=== PATIENT | female | born 1990 | race African-American/Black ===

== ENCOUNTER 2018-12-07 17:43 | Emergency (ER) | payer SELFPAY ==
[~2018-12-07] VITALS: Ht 162.6 cm; Wt 59.0 kg
[2018-12-07 19:47] VITALS: BP 109/70
== END 2018-12-07 18:14 | disposition left against medical advice (07) ==
LOC: ER 17:43
DX: Z53.21 Procedure and treatment not carried out due to patient leaving prior to being seen by health care provider (principal)

== ENCOUNTER 2023-08-21 12:33 | Emergency (ER) | payer OTHER ==
[~2023-08-21] VITALS: Ht 165.1 cm; Wt 55.0 kg
[2023-08-21 12:56] VITALS: BP 103/65; PULSE 74; RESP 12; TEMP 98.6; O2SAT 99
[2023-08-21] MEDS ORDERED: ACET-2084 MT (14:05)
== END 2023-08-21 14:39 | disposition home or self-care (01) ==
LOC: ER 12:33
DX: B34.9 Viral infection, unspecified (principal)
CPT/HCPCS: 99282

== ENCOUNTER 2024-01-18 18:54 | Emergency (ER) | payer MEDICAID, OTHER ==
[~2024-01-18] VITALS: Ht 162.6 cm; Wt 59.0 kg
[~2024-01-18 18:54] MED LIST: ACET-2084 MT
[2024-01-18 19:06] VITALS: BP 105/68; PULSE 75; RESP 16; TEMP 98.3; O2SAT 100
[2024-01-18 20:55] LABS: BASOPHILS % 0.4 % (0.0-2.0); CARBON DIOXIDE 28 mEq/L (21-32); CHLORIDE 110 mEq/L (98-107); EOSINOPHILS % 2.4 % (0.0-5.0); HEMATOCRIT. 36.9 % (36.0-48.0); HEMOGLOBIN. 12.3 g/dL (12.0-16.0); LYMPHOCYTES % 31.2 % (20.0-50.0); MEAN CORPUSCULAR HGB CONC 33.3 g/dL (31.0-37.0); MEAN CORPUSCULAR VOLUME 90.1 fL (81.0-99.0); MEAN PLATELET VOLUME 8.2 fl (7.4-10.4); MONOCYTES % 10.4 % (2.0-8.0); NEUTROPHILS % 55.6 % (40.0-76.0); PLATELET 257 x1000/uL (130-400); POTASSIUM 4.7 mEq/L (3.5-5.1); RED BLOOD CELL COUNT 4.09 mill/uL (4.2-5.4); RED CELL DISTRIBUTION WIDTH 13.2 % (11.6-14.6); SODIUM 141 mEq/L (136-145); WHITE BLOOD COUNT 8.1 x1000/uL (4.5-11.0)
[2024-01-18 20:56] LABS: CALCIUM 8.9 mg/dL (8.7-10.4)
[2024-01-18 20:58] LABS: HCG SCREEN NEGATIVE
[2024-01-18 21:00] LABS: CREATININE 0.6 mg/dL (0.6-1.0); GLUCOSE 89 mg/dL (70-105)
[2024-01-18 21:01] LABS: UREA NITROGEN BLOOD 8 mg/dL (9-23)
[2024-01-18 21:02] LABS: ALANINE AMINOTRANSFERASE < 7 IU/L (10-49); ALBUMIN 4.2 g/dL (3.2-4.8); ASPARTATE AMINOTRANSFERASE 15 IU/L (<34)
[2024-01-18 21:03] LABS: BILIRUBIN DIRECT < 0.1 mg/dL (<=3.0); BILIRUBIN TOTAL 0.2 mg/dL (0.1-1.0); PROTEIN TOTAL 7.1 g/dL (6.0-8.3)
== END 2024-01-18 22:17 | disposition left against medical advice (07) ==
LOC: ER 18:54
DX: R10.30 Lower abdominal pain, unspecified (principal); R11.2 Nausea with vomiting, unspecified
CPT/HCPCS: 36415; 80048; 80076; 84703; 85025; 99283

== ENCOUNTER 2024-07-08 10:51 | Emergency (ER) | payer MEDICAID ==
[~2024-07-08] VITALS: Ht 162.6 cm; Wt 58.0 kg
[2024-07-08 11:06] VITALS: O2SAT 99
[2024-07-08 11:11] VITALS: TEMP 98.8; O2SAT 100
[2024-07-08 12:23] VITALS: BP 120/72; PULSE 75; RESP 18
[2024-07-08] MEDS: IBUPROFEN 600MG TABLET PO ONE (12:23)
[2024-07-08] MEDS ORDERED: IBUP-2029 MT (12:26)
== END 2024-07-08 12:50 | disposition home or self-care (01) ==
LOC: ER 10:51
DX: M79.642 Pain in left hand (principal)
CPT/HCPCS: 73130; 99283

== ENCOUNTER 2024-07-19 09:26 | Emergency (ER) | payer MEDICAID, OTHER ==
[~2024-07-19] VITALS: Ht 162.6 cm; Wt 58.5 kg
[~2024-07-19 09:26] MED LIST changes: +IBUP-2029 MT
[2024-07-19 09:29] VITALS: PULSE 98; O2SAT 99
[2024-07-19 09:33] VITALS: BP 106/76; RESP 16; TEMP 98; O2SAT 98
== END 2024-07-19 11:56 | disposition home or self-care (01) ==
LOC: ER 09:26
DX: M65.312 Trigger thumb, left thumb (principal); Z98.890 Other specified postprocedural states
CPT/HCPCS: 29130; 99281; 99283

== ENCOUNTER 2024-09-18 10:11 | Emergency (ER) | payer MEDICAID, OTHER ==
[~2024-09-18] VITALS: Ht 162.6 cm; Wt 59.0 kg
[2024-09-18 10:19] VITALS: O2SAT 100
[2024-09-18 10:47] VITALS: BP 100/56; PULSE 96; RESP 16; TEMP 98.2; O2SAT 99
[2024-09-18 11:21] LABS: HEMATOCRIT 35.8 % (36.0-48.0); HEMOGLOBIN 11.9 g/dL (12.0-16.0); MEAN CORPUSCULAR HEMOGLOBIN 29.7 pg (28.0-32.0); MEAN CORPUSCULAR HGB CONC 33.2 g/dL (31.0-37.0); MEAN CORPUSCULAR VOLUME 89.3 fL (81.0-99.0); PLATELET 238 x1000/uL (130-400); RED BLOOD CELL COUNT 4.01 mill/uL (4.2-5.4); RED CELL DISTRIBUTION WIDTH 13.8 % (11.6-14.6); WHITE BLOOD COUNT 10.1 x1000/uL (4.5-11.0)
[2024-09-18 11:25] LABS: CHLORIDE 107 mEq/L (98-107); POTASSIUM 4.1 mEq/L (3.5-5.1); SODIUM 139 mEq/L (136-145)
[2024-09-18 11:26] LABS: CARBON DIOXIDE 28 mEq/L (21-32)
[2024-09-18 11:27] LABS: CALCIUM 9.2 mg/dL (8.7-10.4); HCG SCREEN NEGATIVE
[2024-09-18 11:31] LABS: CREATININE 0.7 mg/dL (0.6-1.0); GLUCOSE 80 mg/dL (70-105); UREA NITROGEN BLOOD 11 mg/dL (9-23)
[2024-09-18 11:39] LABS: TROPONIN I HIGH SENSITIVITY < 4 ng/L (3.0-34)
== END 2024-09-18 12:43 | disposition home or self-care (01) ==
LOC: ER 10:11
DX: R07.9 Chest pain, unspecified (principal); Z98.890 Other specified postprocedural states
CPT/HCPCS: 36415; 71045; 80048; 84484; 84703; 85027; 85379; 93005; 99285